=== PATIENT | female | born 1960 | race Caucasian/White ===

== ENCOUNTER 2017-06-01 10:27 | Emergency (ER) | payer OTHER ==
[~2017-06-01] VITALS: Ht 162.6 cm; Wt 93.9 kg
[2017-06-01] MEDS ORDERED: OMEP20TA33 PO (11:09)
[2017-06-01] MEDS ORDERED: MELO15TA14 PO (11:09)
[2017-06-01] MEDS ORDERED: ESCI20TA PO (11:09)
[2017-06-01] MEDS ORDERED: vitamin (11:09)
--- NOTE | 2017-06-01 11:14 | ED Upper Extremity ---
General Chief Complaint: Laceration Stated Complaint: LT RING FINGER CUT Nursing Triage Note: c/o cutting L a4th finger with knife Nursing Sepsis Screen: No Definite Risk Source: patient Exam Limitations: no limitations History of Present Illness Time seen by provider: 11:12 Initial Comments To ER with a laceration to the tip of the left ring finger from a knife while cutting potatoes at work at [employer]. Her tetanus shot is up-to-date within the past 5 years Onset: just prior to arrival Severity: mild Pain/Injury Location: left 4th finger Method of Injury: unknown Allergies and Home Medications Allergies Coded Allergies: No Known Drug Allergies (Unverified , 06/01/17) Home Medications Escitalopram Oxalate 20 Mg Tablet, 20 MG PO, (Reported) Meloxicam 15 Mg Tablet, 15 MG PO, (Reported) Omeprazole Magnesium 20 Mg Tablet.dr, 20 MG PO, (Reported) [vitamin] , (Reported) Constitutional: see HPI (via) EENTM: see HPI Respiratory: no symptoms reported Cardiovascular: no symptoms reported Genitourinary: no symptoms reported Musculoskeletal: no symptoms reported Skin: see HPI Psychiatric/Neurological: No Symptoms Reported Past Hpelhri-Ebqfpz-Hxuqdg Hx Patient Social History Alcohol Use: Denies Use Recreational Drug Use: No Smoking Status: Never a Smoker Recent Foreign Travel: No Contact w/Someone Who Travel: No Recent Infectious Disease Expo: No Surgeries History of Surgeries: Yes (bilateral knee, bariatric ) Surgeries: Adenoidectomy, Gallbladder, Hysterectomy, Orthopedic, Tonsillectomy Respiratory History of Respiratory Disorde: No Cardiovascular History of Cardiac Disorders: No Neurological History of Neurological Disord: No Genitourinary History of Genitourinary Disor: No Gastrointestinal History of Gastrointestinal Di: Yes Gastrointestinal Disorders: Gastroesophageal Reflux Musculoskeletal History of Musculoskeletal Dis: Yes Musculoskeletal Disorders: Arthritis Endocrine History of Endocrine Disorders: No HEENT History of HEENT Disorders: No Cancer History of Cancer: No Psychosocial History of Psychiatric Problem: No Integumentary History of Skin or Integumenta: No Blood Transfusions History of Blood Disorders: No Physical Exam Vital Signs Vital Sign - Last 12Hours 06/01/17 11:06 Temp 98.4 Pulse 77 Resp 18 B/P (MAP) 161/95 Pulse Ox 98 Capillary Refill : Less Than 3 Seconds General Appearance: WD/WN, no apparent distress HEENT: PERRL/EOMI, normal ENT inspection Neck: non-tender, full range of motion Gastrointestinal: non tender, soft Shoulder: normal inspection, non-tender Elbow/Forearm: normal inspection, non-tender, Left Wrist: Yes normal inspection, Yes non-tender Hand: non-tender, Left, laceration (superficial skin avulsion to the very tip of the finger. This was easily glued after application of a finger tourniquet.) Neurologic/Psychiatric: alert, normal mood/affect, oriented x 3 Skin: normal color, warm/dry Laceration Repair : Other Closure Supply: Wound Adhesive Progress/Results/Core Measures Results/Orders Vital Signs/I&O Vital Sign - Last 12Hours 06/01/17 11:06 Temp 98.4 Pulse 77 Resp 18 B/P (MAP) 161/95 Pulse Ox 98 Blood Pressure Mean: 117 Departure Impression Impression: Primary Impression: Skin avulsion Disposition: 01 HOME, SELF-CARE Condition: Stable Departure-Patient Inst. Decision time for Depature: 11:13 Referrals: DEJA GUZMAN DO (PCP/Family) Primary Care Physician Patient Instructions: SKIN AVULSION Add. Discharge Instructions: 1. Allow the glue to follow off on its own in a few days 2. Return to ER for any concerns 3. All discharge instructions reviewed with patient and/or family. Voiced understanding. ELVA GARCIA APRN Jun 01, 2017 11:14
[2017-06-01 11:16] VITALS: BP 161/95
== END 2017-06-01 11:18 | disposition home or self-care (01) ==
LOC: EDUNIT# 10:27 → ER 10:30
DX: S61.215A Laceration without foreign body of left ring finger without damage to nail, initial encounter (principal); K21.9 Gastro-esophageal reflux disease without esophagitis; M19.90 Unspecified osteoarthritis, unspecified site; Z98.84 Bariatric surgery status; Z90.49 Acquired absence of other specified parts of digestive tract; Z90.710 Acquired absence of both cervix and uterus; W26.0XXA Contact with knife, initial encounter